=== PATIENT | male | born 1985 | race African-American/Black ===

== ENCOUNTER → 2024-08-16 | Outpatient (CLI) | LOC: M SOG 08:05 | PROVIDERS: ATTEND Orthopaedic Surgery | DX: Z53.9 Procedure and treatment not carried out, unspecified reason (principal); M25.551 Pain in right hip; M25.552 Pain in left hip ==

== ENCOUNTER → 2025-09-23 | Outpatient (CLI) | payer OTHER | LOC: M SOG 07:40 | PROVIDERS: ATTEND Orthopaedic Surgery | DX: M25.551 Pain in right hip (principal); M87.851 Other osteonecrosis, right femur ==